=== PATIENT | male | born 1985 | race African-American/Black ===

== ENCOUNTER 2018-05-11 10:25 | Emergency (ER) | payer SELFPAY ==
--- NOTE | 2018-05-11 10:37 | NUR ---
CALLED TWICE AT THE LOBBY, NO RESPONSE, LWBS
== END 2018-05-11 10:37 | disposition left against medical advice (07) ==
LOC: MED 10:25
DX: Z53.21 Procedure and treatment not carried out due to patient leaving prior to being seen by health care provider (principal)

== ENCOUNTER 2021-08-09 22:59 | Emergency (ER) | payer MEDICAID ==
[~2021-08-09] VITALS: Ht 182.9 cm; Wt 108.9 kg
[2021-08-09 23:40] VITALS: BP 149/99
--- NOTE | 2021-08-09 23:43 | NUR ---
TO LOBBY A/W BED AMBULATORY
--- NOTE | 2021-08-09 23:59 | NUR ---
SEEN AND EXAMINED BY JIMI
[2021-08-10] MEDS ORDERED: IBUP-2809 PO (00:04)
[2021-08-10 00:08] VITALS: BP 149/99
== END 2021-08-10 00:08 | disposition home or self-care (01) ==
LOC: MED 22:59
DX: S93.402A Sprain of unspecified ligament of left ankle, initial encounter (principal); Z79.1 Long term (current) use of non-steroidal anti-inflammatories (NSAID); X58.XXXA Exposure to other specified factors, initial encounter; Y92.89 Other specified places as the place of occurrence of the external cause; Y93.01 Activity, walking, marching and hiking; Y99.8 Other external cause status
CPT/HCPCS: 99282

== ENCOUNTER 2021-08-30 21:41 | Emergency (ER) | payer MEDICAID ==
[~2021-08-30] VITALS: Ht 182.9 cm; Wt 117.9 kg
[~2021-08-30 21:41] MED LIST: IBUP-2809 PO
[2021-08-30 23:04] VITALS: BP 137/94
[2021-08-30] MEDS ORDERED: IBUPROFEN 800 MG TAB PO ONE (23:05)
--- NOTE | 2021-08-31 00:30 | NUR ---
DR SEEN PT IN LOBBY. DR ASSESSED PT
[2021-08-31] MEDS ORDERED: CLOT14CR2 TP (00:56)
[2021-08-31] MEDS ORDERED: IBUP-2218 PO (00:56)
[2021-08-31] MEDS ORDERED: CEPH-588 PO (00:56)
[2021-08-31 01:39] VITALS: BP 136/48
--- NOTE | 2021-08-31 01:39 | NUR ---
Patient discharged with v/s stable. Written and verbal after care instructions given and explained. Patient alert, oriented and verbalized understanding of instructions. Ambulatory with steady gait. All questions addressed prior to discharge. ID band removed. Patient advised to follow up with PMD. Rx of KEFLEX, CLOTRIMAZOLE, IBUPROFEN given. Opportunity to ask questions provided and answered.
== END 2021-08-31 01:39 | disposition home or self-care (01) ==
LOC: MED 21:41
DX: M79.672 Pain in left foot (principal); F17.210 Nicotine dependence, cigarettes, uncomplicated; Z71.6 Tobacco abuse counseling
CPT/HCPCS: 73630; 90471; 90715; 99283

== ENCOUNTER 2022-03-14 08:02 | Emergency (ER) | payer MEDICAID ==
[~2022-03-14] VITALS: Ht 182.9 cm; Wt 102.6 kg
[~2022-03-14 08:02] MED LIST changes: +CEPH-588 PO; +CLOT14CR2 TP; +IBUP-2218 PO
[2022-03-14 08:08] VITALS: BP 153/94
--- NOTE | 2022-03-14 08:11 | NUR ---
PT AMBULATED TO BED 04.
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
[2022-03-14 08:16] VITALS: BP 148/95
[2022-03-14] MEDS ORDERED: KETOROLAC 30 MG/ML VIAL IM ONE (09:20)
[2022-03-14] MEDS ORDERED: TRAM50TA1 PO (09:22)
--- NOTE | 2022-03-14 09:30 | NUR ---
Patient discharged with v/s stable. Written and verbal after care instructions given and explained. Patient alert, oriented and verbalized understanding of instructions. Ambulatory with steady gait. All questions addressed prior to discharge. ID band removed. Patient advised to follow up with PMD. Rx of ULTRAM given. Patient educated on indication of medication including possible reaction and side effects. Opportunity to ask questions provided and answered. SLING APPLIED TO RIGHT ARM. PT REFUSED TORADOL IM SHOT, ERMD AWARE
== END 2022-03-14 09:30 | disposition home or self-care (01) ==
LOC: MED 08:02
DX: S42.001A Fracture of unspecified part of right clavicle, initial encounter for closed fracture (principal); F17.210 Nicotine dependence, cigarettes, uncomplicated; V01.90XA Pedestrian on foot injured in collision with pedal cycle, unspecified whether traffic or nontraffic accident, initial encounter; Y93.89 Activity, other specified; Y92.89 Other specified places as the place of occurrence of the external cause; Y99.8 Other external cause status
CPT/HCPCS: 71045; 73030; 99284